=== PATIENT | male | born 1950 | race Caucasian/White ===

== ENCOUNTER 2019-02-05 15:46 | Observation (INO) | payer MEDICARE, OTHER ==
--- NOTE | 2019-02-05 16:10 | EDM.PDOC ---
ED HPI GENERAL MEDICAL PROBLEM - General Chief Complaint: Neck Problem Stated Complaint: L SHOULDER & BACK PAIN Time Seen by Provider: 02/05/19 15:50 Source of Information: Reports: Patient History Limitations: Reports: No Limitations - History of Present Illness INITIAL COMMENTS - FREE TEXT/NARRATIVE: 68 YO WM presents to ER complaining intermittent left sided neck and shoulder pain which began 2 weeks ago. Pt reports pain is sharp in character and lasts for approximately 5 minutes and resolves. Pt denies associated chest pain or shortness of breath. Pt reports he had an episode today which lasted for 5 minutes with associated nausea but denies diaphoresis or dizziness. Pt with history of CAD s/p cardiac cath 2 years ago. Pt reports RCA 100% occluded but he was told he has collateral flow. Pt states he's had a stress test last summer and passed without issues. Pt denies any reproducible aspect to his neck and shoulder pain. Duration: Week(s): (2) Location: Reports: Neck, Chest, Upper Extremity, Left Quality: Reports: Ache Severity: Mild Improves with: Reports: None Worsens with: Reports: None Associated Symptoms: Reports: Nausea/Vomiting, Weakness. Denies: Chest Pain, Cough, Fever/Chills, Loss of Appetite, Shortness of Breath, Syncope - Related Data Allergies Allergy/AdvReac Type Severity Reaction Status Date / Time No Known Drug Allergies Allergy NKDA Verified 02/05/19 16:16 Home Meds: Home Meds Aspirin 81 mg PO BRK 12/06/16 [History] Ezetimibe [Zetia] 10 mg PO DAILY 12/06/16 [History] Folic Acid 400 mcg PO DAILY 12/06/16 [History] Metoprolol Tartrate [Lopressor] 25 mg PO BID 12/06/16 [History] Multivitamin with Minerals [Multiple Vitamin] 1 tab PO DAILY 12/06/16 [History] [place]-3/DHA/Epa/Fish Oil [[place]-3 Fish Oil 1,000 MG Sfgl] 1,000 mg PO BID [History] Simvastatin [Zocor] 80 mg PO BEDTIME 12/06/16 [History] Venlafaxine [Effexor] 75 mg PO DAILY 12/06/16 [History] Fenofibrate 80 mg PO BEDTIME 01/17/17 [History] Finasteride [Proscar] 5 mg PO DAILY 02/05/19 [History] Omeprazole 40 mg PO DAILY 02/05/19 [History] Past Medical History HEENT History: Reports: Allergic Rhinitis, Hard of Hearing, Impaired Vision Other HEENT History: glasses, left ear hearing aide Cardiovascular History: Reports: High Cholesterol, Hypertension Respiratory History: Reports: Asthma, Bronchitis, Recurrent Gastrointestinal History: Reports: Chronic Diarrhea, Colon Polyp, Diverticulosis , Hemorrhoids, Irritable Bowel Syndrome Musculoskeletal History: Reports: Back Pain, Chronic Neurological History: Reports: Other (See Below) Other Neuro History: Trigeminal Neuralgia Psychiatric History: Reports: Depression - Infectious Disease History Infectious Disease History: Reports: C-Difficile, Influenza, Measles, Mumps - Past Surgical History HEENT Surgical History: Reports: Naso-Sinus Surgery, Tonsillectomy Musculoskeletal Surgical History: Reports: Arthroscopic Knee, Shoulder Surgery Social & Family History - Family History Cardiac: Reports: High Cholesterol, Hypertension - Caffeine Use Caffeine Use: Reports: Coffee, Tea Other Caffeine Use: 2 cups/day ED ROS GENERAL - Review of Systems Review Of Systems: See Below Constitutional: Reports: No Symptoms HEENT: Reports: No Symptoms Respiratory: Reports: No Symptoms Cardiovascular: Reports: No Symptoms, Palpitations Endocrine: Reports: No Symptoms GI/Abdominal: Reports: No Symptoms : Reports: No Symptoms Musculoskeletal: Reports: Neck Pain, Shoulder Pain, Arm Pain Skin: Reports: No Symptoms Neurological: Reports: No Symptoms Psychiatric: Reports: No Symptoms Hematologic/Lymphatic: Reports: No Symptoms Immunologic: Reports: No Symptoms ED EXAM, UPPER BACK/NECK PAIN - Physical Exam Exam: See Below Exam Limited By: No Limitations General Appearance: Alert, WD/WN, No Apparent Distress Eye Exam: Bilateral Eye: EOMI, PERRL Ears Exam: Normal External Exam, Normal Canal, Hearing Grossly Normal, Normal TMs Nose Exam: Normal Inspection, Normal Mucousa, No Blood Throat/Mouth Exam: Normal Inspection, Normal Lips, Normal Teeth, Normal Gums, Normal Oropharynx, Normal Voice, No Airway Compromise Head Exam: Atraumatic, Normocephalic Neck Exam: Non-Tender, Full Range of Motion, Normal Alignment, Normal Inspection Cardiovascular/Respiratory: Regular Rate, Rhythm, No M/R/G, Normal Peripheral Pulses, No JVD, Normal Breath Sounds, No Respiratory Distress GI/Abdominal: Normal Bowel Sounds, Soft, Non-Tender, No Organomegaly, No Distention, No Abnormal Bruit, No Mass Back Exam: Normal Inspection, Full Range of Motion, NT Extremities: Normal Inspection, Normal Range of Motion, Non-Tender, No Pedal Edema, Normal Capillary Refill Neurologic: talent analyst II-XII nml As Tested, No Motor/Sensory Deficits, Alert, Normal Mood/Affect, Oriented x 3 Psychiatric: Normal Affect, Normal Mood Skin Exam: Normal Color, Warm/Dry Lymphatic: No Adenopathy EKG INTERPRETATION EKG Date: 02/05/19 Time: 16:04 Rhythm: NSR Rate (Beats/Min): 72 [place]: Normal P-Wave: Present QRS: Normal ST-T: Normal QT: Normal Course - Vital Signs Last Recorded V/S: Last Vital Signs Temp 37.0 C 02/05/19 16:01 Pulse 73 02/05/19 16:50 Resp 16 02/05/19 16:50 BP 119/49 L 02/05/19 16:50 Pulse Ox 95 02/05/19 16:50 - Orders/Labs/Meds Orders: Active Orders 24 hr Category Date Time Status EKG Documentation Completion [RC] ASDIRECTED Care 02/05/19 16:11 Active Peripheral IV Care [RC] . DIRECTED Care 02/05/19 16:11 Active Sodium Chloride 0.9% [Saline Flush] Med 02/05/19 16:11 Active 10 ml FLUSH Q8HR PRN Peripheral IV Insertion Adult [OM.PC] Routine Oth 02/05/19 16:11 Ordered Medication Orders Sodium Chloride (Saline Flush) 10 ml FLUSH Q8HR PRN PRN Reason: keep vein open Labs: Laboratory Tests 02/05/19 02/05/19 Range/Units 16:35 16:35 WBC 5.43 (5.00-10.00) 10^3/uL RBC 4.32 L (4.50-6.00) 10^6/uL Hgb 13.7 (13.0-17.0) g/dL Hct 38.7 L (40.0-52.0) % MCV 89.6 (82.0-92.0) fL MCH 31.7 H (27.0-31.0) pg MCHC 35.4 (32.0-36.0) g/dL RDW 12.0 (11.5-14.5) % Plt Count 219 (150-400) 10^3/uL MPV 10.5 H (7.4-10.4) fL Immature Gran % (Auto) 0.0 (0.0-5.0) % Neut % (Auto) 61.9 (50.0-70.0) % Lymph % (Auto) 23.4 (20.0-40.0) % [place] % (Auto) 11.0 H (2.0-8.0) % Eos % (Auto) 3.1 H (1.0-3.0) % Baso % (Auto) 0.6 (0.0-1.0) % Immature Gran # (Auto) 0.00 (0.00-0.50) 10^3/uL Neut # (Auto) 3.36 (2.50-7.00) 10^3/uL Lymph # (Auto) 1.27 (1.00-4.00) 10^3/uL [place] # (Auto) 0.60 (0.10-0.80) 10^3/uL Eos # (Auto) 0.17 (0.10-0.30) 10^3/uL Baso # (Auto) 0.03 (0.00-0.10) 10^3/uL Sodium 141 (136-145) mmol/L Potassium 3.9 (3.3-5.3) mmol/L Chloride 103 (98-115) mmol/L Carbon Dioxide 27.0 (21.0-32.0) mmol/L Anion Gap 14.9 (5-15) mmol/L BUN 29 H (6-25) mg/dL Creatinine 0.84 (0.51-1.17) mg/dL Est Cr Clr Drug Dosing 81.43 mL/min Estimated GFR (MDRD) > 60 mL/min Glucose 113 H (75 - 99) mg/dL Calcium 9.3 (8.7-10.3) mg/dL Total Bilirubin 0.5 (0.2-1.0) mg/dL AST 22 (15-37) U/L ALT 25 (12-78) U/L Alkaline Phosphatase 37 L (46-116) IU/L Creatine Kinase 86 (26-276) U/L CK-MB (CK-2) 1.00 (0.00-4.30) ng/mL Troponin I < 0.04 (0.00-0.070) ng/mL Total Protein 6.6 (6.4-8.2) g/dL Albumin 3.74 (3.00-4.80) g/dL Meds: Medications Generic Name Dose Route Start Last Admin Trade Name Jayjayq PRN Reason Stop Dose Admin Sodium Chloride 10 ml 02/05/19 16:11 Saline Flush FLUSH Q8HR PRN keep vein open Discontinued Medications Generic Name Dose Route Start Last Admin Trade Name Skylar PRN Reason Stop Dose Admin Aspirin 324 mg 02/05/19 16:11 Aspirin PO 02/05/19 16:12 ONETIME ONE Nitroglycerin 1 gm 02/05/19 16:11 Nitro-Bid 2% TOP 02/05/19 16:12 ONETIME ONE - Radiology Interpretation Free Text/Narrative:: CXR- NAD Departure - Departure Time of Disposition: 17:13 Disposition: Refer to Observation Condition: Fair Clinical Impression: Angina at rest - Discharge Information - My Orders Last 24 Hours: My Active Orders 02/05/19 16:11 EKG Documentation Completion [RC] ASDIRECTED Peripheral IV Care [RC] . DIRECTED Sodium Chloride 0.9% [Saline Flush] 10 ml FLUSH Q8HR PRN Peripheral IV Insertion Adult [OM.PC] Routine - Assessment/Plan Last 24 Hours: My Active Orders 02/05/19 16:11 EKG Documentation Completion [RC] ASDIRECTED Peripheral IV Care [RC] . DIRECTED Sodium Chloride 0.9% [Saline Flush] 10 ml FLUSH Q8HR PRN Peripheral IV Insertion Adult [OM.PC] Routine Assessment:: 1. left shoulder pain/neck pain- possible anginal equivalent Plan: 1. admit for 23 hour obs- medicine- dana Ericon 2. nitro/asa 3. supportive care 4. trop I Q6 x 3 5. telemetry
[2019-02-05] MEDS ORDERED: Nitroglycerin 2% Oint 1 GM UD Packet TOP ONE (16:11)
[2019-02-05] MEDS ORDERED: Sodium Chloride 0.9% 10 ML Syringe FLUSH PRN (16:11)
[2019-02-05] MEDS ORDERED: Aspirin 81 MG Tab.Chew PO ONE (16:11)
--- NOTE | 2019-02-05 16:49 | CR ---
[id number] RAD/RAD Chest PA or AP 1V EXAM: RAD Chest PA or AP 1V INDICATION: PAIN. COMPARISON: January 17, 2017. DISCUSSION: Cardiomediastinal silhouette is normal in size and contour. No infiltrate, effusion, pneumothorax, or edema. IMPRESSION: Negative examination of the chest. Roberto Yadav MD 02/05/19 [id number] Thank you for allowing us to participate in the care of your patient.
[2019-02-05 17:11] LABS: ANION GAP 14.9 mmol/L (5-15); CHLORIDE,CL 103 mmol/L (98-115); SODIUM,NA 141 mmol/L (136-145)
[2019-02-05] MEDS: Nitroglycerin 2% Oint 1 GM UD Packet TOP SCH ×2 (17:45→23:50)
--- NOTE | 2019-02-05 18:56 | PCM.HP ---
H&P History of Present Illness - General Date of Service: 02/05/19 Admit Problem/Dx: Admission Diagnosis/Problem Admission Diagnosis/Problem Angina Source of Information: Patient, Old Records, Provider, Significant Other History Limitations: Reports: No Limitations Headache Pain Score (Numeric/FACES): 0 - Related Data Allergies/Adverse Reactions: Allergies Allergy/AdvReac Type Severity Reaction Status Date / Time No Known Drug Allergies Allergy NKDA Verified 02/05/19 16:16 Home Medications: Home Meds Aspirin 81 mg PO BRK 12/06/16 [History] Folic Acid 400 mcg PO DAILY 12/06/16 [History] Metoprolol Tartrate [Lopressor] 25 mg PO BID 12/06/16 [History] Multivitamin with Minerals [Multiple Vitamin] 1 tab PO DAILY 12/06/16 [History] [place]-3/DHA/Epa/Fish Oil [[place]-3 Fish Oil 1,000 MG Sfgl] 1,000 mg PO BID [History] Simvastatin [Zocor] 80 mg PO BEDTIME 12/06/16 [History] Venlafaxine [Effexor] 75 mg PO DAILY 12/06/16 [History] Finasteride [Proscar] 5 mg PO DAILY 02/05/19 [History] Omeprazole 40 mg PO DAILY 02/05/19 [History] Cyclobenzaprine [Flexeril] 5 mg PO TID PRN #10 tab 02/06/19 [Rx] Naproxen [Naprosyn] 250 mg PO BID #14 tab 02/06/19 [Rx] Past Medical History HEENT History: Reports: Allergic Rhinitis, Hard of Hearing, Impaired Vision Other HEENT History: glasses, left ear hearing aide Cardiovascular History: Reports: High Cholesterol, Hypertension Respiratory History: Reports: Asthma, Bronchitis, Recurrent Gastrointestinal History: Reports: Chronic Diarrhea, Colon Polyp, Diverticulosis , Hemorrhoids, Irritable Bowel Syndrome Genitourinary History: Reports: Other (See Below) Other Genitourinary History: enlarged prostate Musculoskeletal History: Reports: Back Pain, Chronic Neurological History: Reports: Other (See Below) Other Neuro History: Trigeminal Neuralgia Psychiatric History: Reports: Depression - Infectious Disease History Infectious Disease History: Reports: C-Difficile, Influenza, Measles, Mumps - Past Surgical History HEENT Surgical History: Reports: Naso-Sinus Surgery, Tonsillectomy Musculoskeletal Surgical History: Reports: Arthroscopic Knee, Shoulder Surgery Social & Family History - Family History Cardiac: Reports: High Cholesterol, Hypertension - Tobacco Use Smoking Status *Q: Never Smoker Second Hand Smoke Exposure: No - Caffeine Use Caffeine Use: Reports: Coffee, Tea Other Caffeine Use: 2 cups/day - Recreational Drug Use Recreational Drug Use: No H&P Review of Systems - Review of Systems: Review Of Systems: See Below General: Reports: Fatigue. Denies: Fever, Chills, Weakness, Decreased Appetite HEENT: Reports: Glasses, Headaches (chronic tension-type/neck headaches). Denies: Ear Pain, Sinus Congestion, Sore Throat Pulmonary: Denies: Shortness of Breath, Cough Cardiovascular: Denies: Chest Pain, Palpitations, Dyspnea on Exertion, Edema, Lightheadedness Gastrointestinal: Reports: Other (No reflux). Denies: Abdominal Pain, Constipation, Diarrhea, Decreased Appetite, Nausea, Vomiting Genitourinary: Reports: No Symptoms Musculoskeletal: Reports: Neck Pain (chronic due to difficult ), Shoulder Pain (left shoulder joint with radiation up the neck). Denies: Arm Pain, Back Pain Psychiatric: Reports: No Symptoms Neurological: Reports: Headache. Denies: Confusion, Dizziness, Numbness, Tingling Exam - Exam Exam: See Below - Vital Signs Vital Signs: Last Vital Signs Temp 98.6 F 02/05/19 16:01 Pulse 73 02/05/19 16:50 Resp 16 02/05/19 16:50 BP 119/49 L 02/05/19 16:50 Pulse Ox 95 02/05/19 16:50 Weight: 152 lb - Exam Quality Assessment: No: Supplemental Oxygen General: Alert, Oriented (x3), Cooperative, Other (No distress) HEENT: Conjunctiva Clear, Hearing Intact, Mucosa Moist & [place], Posterior Pharynx Clear, TMs Clear, Glasses Neck: Supple, Trachea Midline, Full Range of Motion, Other (No neck pain elicited). No: Lymphadenopathy Lungs: Clear to Auscultation, Normal Respiratory Effort Cardiovascular: Regular Rate, Regular Rhythm, Normal S1, Normal S2 GI/Abdominal Exam: Normal Bowel Sounds, Soft, Non-Tender, No Distention Back Exam: Muscle Spasm (upper left trapezius muscle spasm with tenderness elicited) Extremities: No Pedal Edema, Other (Active ROM intact to left shoulder without pain) Skin: Warm, Dry Neurological: Strength Equal Bilateral (BUE), Normal Speech Neuro Extensive - Mental Status: Alert, Oriented x3 Psychiatric: Alert, Normal Affect, Normal Mood - Patient Data Lab Results Last 24 hrs: Laboratory Results - last 24 hr 02/05/19 02/05/19 Range/Units 16:35 16:35 WBC 5.43 (5.00-10.00) 10^3/uL RBC 4.32 L (4.50-6.00) 10^6/uL Hgb 13.7 (13.0-17.0) g/dL Hct 38.7 L (40.0-52.0) % MCV 89.6 (82.0-92.0) fL MCH 31.7 H (27.0-31.0) pg MCHC 35.4 (32.0-36.0) g/dL RDW 12.0 (11.5-14.5) % Plt Count 219 (150-400) 10^3/uL MPV 10.5 H (7.4-10.4) fL Immature Gran % (Auto) 0.0 (0.0-5.0) % Neut % (Auto) 61.9 (50.0-70.0) % Lymph % (Auto) 23.4 (20.0-40.0) % [place] % (Auto) 11.0 H (2.0-8.0) % Eos % (Auto) 3.1 H (1.0-3.0) % Baso % (Auto) 0.6 (0.0-1.0) % Immature Gran # (Auto) 0.00 (0.00-0.50) 10^3/uL Neut # (Auto) 3.36 (2.50-7.00) 10^3/uL Lymph # (Auto) 1.27 (1.00-4.00) 10^3/uL [place] # (Auto) 0.60 (0.10-0.80) 10^3/uL Eos # (Auto) 0.17 (0.10-0.30) 10^3/uL Baso # (Auto) 0.03 (0.00-0.10) 10^3/uL Sodium 141 (136-145) mmol/L Potassium 3.9 (3.3-5.3) mmol/L Chloride 103 (98-115) mmol/L Carbon Dioxide 27.0 (21.0-32.0) mmol/L Anion Gap 14.9 (5-15) mmol/L BUN 29 H (6-25) mg/dL Creatinine 0.84 (0.51-1.17) mg/dL Est Cr Clr Drug Dosing 81.43 mL/min Estimated GFR (MDRD) > 60 mL/min Glucose 113 H (75 - 99) mg/dL Calcium 9.3 (8.7-10.3) mg/dL Total Bilirubin 0.5 (0.2-1.0) mg/dL AST 22 (15-37) U/L ALT 25 (12-78) U/L Alkaline Phosphatase 37 L (46-116) IU/L Creatine Kinase 86 (26-276) U/L CK-MB (CK-2) 1.00 (0.00-4.30) ng/mL Troponin I < 0.04 (0.00-0.070) ng/mL Total Protein 6.6 (6.4-8.2) g/dL Albumin 3.74 (3.00-4.80) g/dL Result Diagrams: 02/06/19 07:55 02/06/19 07:55 EKG INTERPRETATION EKG Date: 02/05/19 Time: 16:04 Rhythm: NSR Rate (Beats/Min): 72 [place]: Normal P-Wave: Present QRS: Normal ST-T: Normal Comparison: Change From Previous EKG (Sinus bradycardia at 58 bpm (February 2017)) Problem List Initiated/Reviewed/Updated: Yes Orders Last 24hrs: Active Orders 24 hr Category Date Time Status Patient Status Manage Transfer [TRANSFER] Routine ADT 02/05/19 17:32 Ordered Patient Status [ADT] Routine ADT 02/05/19 17:33 Ordered Cardiac Monitoring [RC] CONTINUOUS Care 02/05/19 17:34 Active EKG Documentation Completion [RC] ASDIRECTED Care 02/05/19 16:11 Active Oxygen Therapy [RC] PRN Care 02/05/19 17:33 Active Peripheral IV Care [RC] . DIRECTED Care 02/05/19 16:11 Active Up ad Mitzy [RC] ASDIRECTED Care 02/05/19 17:33 Active VTE/DVT Education [RC] PER UNIT ROUTINE Care 02/05/19 17:33 Active Vital Signs [RC] Q4H Care 02/05/19 17:33 Active 2 Gram Sodium Diet [DIET] Diet 02/05/19 Dinner Active Cervical Spine 2V or 3V [CR] Routine Exams 02/05/19 18:42 Ordered BASIC METABOLIC PANEL,BMP [CHEM] AM Lab 02/06/19 05:11 Ordered CBC WITH AUTO DIFF [HEME] AM Lab 02/06/19 05:11 Ordered TROPONIN I [CHEM] AM Lab 02/06/19 05:11 Ordered TROPONIN I [CHEM] Timed Lab 02/05/19 22:00 Ordered Aspirin Med 02/06/19 08:00 Ordered 81 mg PO BRK Aspirin [Ecotrin] Med 02/06/19 09:00 Active 325 mg PO DAILY Ezetimibe [Zetia] Med 02/06/19 09:00 Ordered 10 mg PO DAILY Fenofibrate Med 02/05/19 21:00 Ordered 80 mg PO BEDTIME Finasteride [Proscar] Med 02/06/19 09:00 Ordered 5 mg PO DAILY Folic Acid [Folic Acid] Med 02/06/19 09:00 Ordered 400 mcg PO DAILY Metoprolol Tartrate [Lopressor] Med 02/05/19 21:00 Ordered 25 mg PO BID Multivitamin with Minerals [Multiple Vitamin] Med 02/06/19 09:00 Ordered 1 tab PO DAILY Nitroglycerin [Nitro-Bid 2%] Med 02/05/19 17:45 Active 1 gm TOP Q6H [place]-3/DHA/Epa/Fish Oil [[place]-3 Fish Oil 1,000 MG Med 02/05/19 21:00 Ordered Sfgl] 1,000 mg PO BID Omeprazole Med 02/06/19 09:00 Ordered 40 mg PO DAILY Simvastatin [Zocor] Med 02/05/19 21:00 Ordered 80 mg PO BEDTIME Sodium Chloride 0.9% [Saline Flush] Med 02/05/19 16:11 Active 10 ml FLUSH Q8HR PRN Venlafaxine [Effexor] Med 02/06/19 09:00 Ordered 75 mg PO DAILY Peripheral IV Insertion Adult [OM.PC] Routine Oth 02/05/19 16:11 Ordered Resuscitation Status Routine Resus Stat 02/05/19 17:33 Ordered Medication Orders Aspirin (Ecotrin) 325 mg PO DAILY [facility] Aspirin (Aspirin) 81 mg PO BRK [facility] Ezetimibe (Zetia) 10 mg PO DAILY [facility] Fenofibrate (Fenofibrate) 80 mg PO BEDTIME [facility] Finasteride (Proscar) 5 mg PO DAILY [facility] Metoprolol Tartrate (Lopressor) 25 mg PO BID [facility] Nitroglycerin (Nitro-Bid 2%) 1 gm TOP Q6H [facility] Last Admin: 02/05/19 17:45 Dose: Not Given Non-Formulary Medication (Folic Acid [Folic Acid]) 400 mcg PO DAILY [facility] Non-Formulary Medication (Multivitamin With Minerals [Multiple Vitamin]) 1 tab PO DAILY [facility] Non-Formulary Medication ([place]-3/Dha/Epa/Fish Oil [[place]-3 Fish Oil 1,000 Mg Sfgl]) 1,000 mg PO BID [facility] Non-Formulary Medication (Simvastatin [Zocor]) 80 mg PO BEDTIME [facility] Omeprazole (Omeprazole) 40 mg PO DAILY [facility] Sodium Chloride (Saline Flush) 10 ml FLUSH Q8HR PRN PRN Reason: keep vein open Venlafaxine HCl (Effexor) 75 mg PO DAILY [facility] Assessment/Plan Comment:: HPI: This is a 68 year old male who presented to the ED with concerns of left sided neck and shoulder pain that began 2 weeks ago. Pain is reported to be at the left shoulder joint with radiation up the neck and down the arm to the elbow ; sharp and intermittent. He experienced an episode of 5 minutes of pain with nausea today, which is what brought him in to the ED. Denies chest pain, shortness of breath, or dizziness. Denies any injury or precipitating event. Patient became nervous as he does have a history of CAD s/p cardiac cath 2 years ago. He was told the RCA was 100% occluded, but he has collateral flow. He notes he had a stress test last summer than was negative. Pertinent ED workup: EKG NSR, no ST segment changes CXR no acute processes Troponin <0.04. CBC, CMP unremarkable Received aspirin 324 mg and nitropaste Further work-up upon admission: -Medication reconciliation -Cervical spine x-ray Primary Assessment/Plan: Acute left shoulder and acute on chronic cervical spine pain. Upon further history and review of chart, there are no anginal concerns. Patient quite concerned however about his heart so will leave on telemetry and obtain a total of 3 troponins. Cervical spine x-ray pending. He is not currently having any pain, so will not order pain reliever at this time. Secondary Assessment/Plan: CAD. Continue lopressor 25 mg BID and baby aspirin daily. HTN. See above. Hypercholesterolemia. LDL 40 (2017). Continue simvastatin, however discontinue zetia and fenofibrate as this combination could increase the risk of myalgias/myopathy and based on labs it is not warranted. Depression. Continue effexor XR. GERD. Continue omeprazole. BPH. Continue finasteride. DVT prophylaxis. Score of 2. No clinical risk for DVT/PE. No treatment. Overall plan: Monitor with telemetry and troponins. Obtain x-ray of cervical spine. If hemodynamically stable, will be able to be discharged tomorrow.
--- NOTE | 2019-02-05 19:55 | CR ---
[id number] RAD/RAD Cervical Spine 2-3V Exam: RAD Cervical Spine 2-3V Indication:NECK PAIN, NO INJURY Comparison: No prior imaging for comparison. Discussion: Mild/moderate changes of spondylosis. Straightening of the normal cervical lordosis. Radiographically evident fracture or compression deformity. Prevertebral soft tissues are normal in thickness. Hyperdense material projects over the mastoid region. Correlate for history of prior surgery. Impression: As above. Roberto Yadav MD 02/05/19 1954 Thank you for allowing us to participate in the care of your patient.
[2019-02-05] MEDS: Metoprolol Tartrate 50 MG Tab PO SCH (20:51)
[2019-02-05] MEDS: Fish Oil/Omega-3 Fatty Acids 1 Gm Cap PO SCH (20:51)
[2019-02-05] MEDS ORDERED: Simvastatin 20 MG Tab PO SCH (21:00)
[2019-02-05] MEDS ORDERED: Fenofibrate 160 MG Tab PO SCH (21:00)
[2019-02-06] MEDS: Nitroglycerin 2% Oint 1 GM UD Packet TOP SCH (05:06)
[2019-02-06] MEDS ORDERED: Omeprazole 20 MG Cap.CR PO SCH (07:00)
[2019-02-06] MEDS ORDERED: Aspirin 81 MG Tab.Chew PO SCH (08:00)
[2019-02-06] MEDS: Metoprolol Tartrate 50 MG Tab PO SCH (08:35)
[2019-02-06] MEDS: Fish Oil/Omega-3 Fatty Acids 1 Gm Cap PO SCH (08:39)
[2019-02-06 08:50] LABS: CHLORIDE,CL 107 mmol/L (98-115)
[2019-02-06 08:51] LABS: SODIUM,NA 143 mmol/L (136-145)
[2019-02-06] MEDS ORDERED: Multivitamins with Minerals/Iron/Folic Acid/Lycopene Tab PO SCH (09:00)
[2019-02-06] MEDS ORDERED: Folic Acid 1 MG Tab PO SCH (09:00)
[2019-02-06] MEDS ORDERED: Ezetimibe 10 MG Tab PO SCH (09:00)
[2019-02-06] MEDS ORDERED: Aspirin 325 MG Tab.EC PO SCH (09:00)
[2019-02-06] MEDS ORDERED: Venlafaxine 75 MG Tab PO SCH (09:00)
[2019-02-06] MEDS ORDERED: Finasteride 5 MG Tab PO SCH (09:00)
--- NOTE | 2019-02-06 11:52 | CT ---
[id number] CT/CT Cervical Spine WO IV EXAM: CT Cervical Spine WO IV INDICATION: COMPRESSION FRACTURE VERSUS DEFORMITY. COMPARISON: February 05, 2019 left DISCUSSION: Negative for acute fracture or compression deformity. Mild/moderate changes of spondylosis diffusely throughout the cervical spine, including slight loss of intervertebral disc height at C5-6. Postsurgical change from craniotomy with prosthesis placement in the posterior fossa on the left just posterior to the mastoid air cells. This correlates with findings on radiograph. IMPRESSION: No acute findings in the cervical spine. Roberto Yadav MD 02/06/19 2001 Thank you for allowing us to participate in the care of your patient.
[2019-02-06 12:33] VITALS: BP 106/61
--- NOTE | 2019-02-06 13:19 | PCM.DCSUM1 ---
Discharge Summary - Hospital Course Brief History: This is a 68 year old male who presented to the ED with concerns of left sided neck and shoulder pain that began 2 weeks ago. Pain was reported to be at the left shoulder joint with radiation up the neck and down the arm to the elbow; sharp and intermittent. He experienced an episode of 5 minutes of pain with nausea on day of admission, which is what brought him in to the ED. Denied chest pain, shortness of breath, or dizziness. Denied any injury or precipitating event. Patient became nervous as he does have a history of CAD s/ p cardiac cath 2 years ago. He was told the RCA was 100% occluded, but he has collateral flow. He noted he had a stress test last summer that was negative. He was admitted for further work-up and monitoring. - Discharge Data Discharge Date: 02/06/19 Discharge Disposition: Home, Self-Care 01 Condition: Good - Patient Summary/Data Complications: None Consults: None Labs Pending at D/C: None - Patient Instructions Diet: Heart Healthy Diet Activity: As Tolerated Driving: May Drive Today Showering/Bathing: May Shower Other/Special Instructions: Trial of Naproxen 250 mg twice a day for the next week for your shoulder pain. May also use tylenol 1000 mg up to 4 times a day as needed for pain. Repeat cholesterol panel in 3 months. Notify provider if shoulder pain significantly worsens, if you have chest pain, palpitations, or shortness of breath. - Discharge Plan *PRESCRIPTION DRUG MONITORING PROGRAM REVIEWED*: Not Applicable *COPY OF PRESCRIPTION DRUG MONITORING REPORT IN PATIENT TALIA: Not Applicable Prescriptions/Med Rec: Cyclobenzaprine [Flexeril] 5 mg PO TID PRN #10 tab PRN Reason: muscle spasms Naproxen [Naprosyn] 250 mg PO BID #14 tab Home Medications: Home Meds Aspirin 81 mg PO BRK 12/06/16 [History] Folic Acid 400 mcg PO DAILY 12/06/16 [History] Metoprolol Tartrate [Lopressor] 25 mg PO BID 12/06/16 [History] Multivitamin with Minerals [Multiple Vitamin] 1 tab PO DAILY 12/06/16 [History] [place]-3/DHA/Epa/Fish Oil [[place]-3 Fish Oil 1,000 MG Sfgl] 1,000 mg PO BID [History] Simvastatin [Zocor] 80 mg PO BEDTIME 12/06/16 [History] Venlafaxine [Effexor] 75 mg PO DAILY 12/06/16 [History] Finasteride [Proscar] 5 mg PO DAILY 02/05/19 [History] Omeprazole 40 mg PO DAILY 02/05/19 [History] Cyclobenzaprine [Flexeril] 5 mg PO TID PRN #10 tab 02/06/19 [Rx] Naproxen [Naprosyn] 250 mg PO BID #14 tab 02/06/19 [Rx] Referrals: Jesus Pringle MD [Primary Care Provider] - (Follow-up with a provider this coming week. ) - Discharge Summary/Plan Comment DC Time >30 min.: Yes Discharge Summary/Plan Comment: Date of admission: 02/05/19 Date of discharge 02/06/19 Admitting diagnoses: Primary: Acute left shoulder pain, acute on chronic cervical spine pain Secondary: CAD, HTN, Hypercholesterolemia, Depression, GERD, BPH Final diagnosis: Primary: Acute left shoulder pain, acute on chronic cervical spine pain, spondylolysis (mild-moderate) of cervical spine. Secondary: CAD, HTN, Hypercholesterolemia, Depression, GERD, BPH Hospital Course: The patient's hospital course was uneventful. BP and pulse overnight did drop some, however he never became hemodynamically unstable and this is attributed to the nitropaste that had been applied in the ED. He was monitored with telemetry without any abnormalities and he had 3 negative troponins. Chest x- ray was negative. Cervical spine x-ray had questioned a fracture versus deformity, so patient underwent a CT of the cervical spine that revealed no acute findings, mild/moderate changes of spondylosis diffusely throughout with slight loss of intervertebral disc height at C5-6. Review of Epic Chart, noted patient had LDL of 40 in 2017. Question relation of myopathy to the use of fenofibrate, zetia, and simvastatin together. New medications on discharge: -Naproxen 250 mg po BID x 1 week -Flexeril 5 mg po TID PRN spasms -Tylenol 1000 mg po q6h PRN Changes to home medications on discharge: -Discontinue zetia and fenofibrate Regular home medications on discharge: -Lopressor 25 mg po BID -Finasteride 5 mg po daily -Fish Oil 1000 mg po BID -Multivitamin 1 tab po daily -Simvastatin 80 mg po daily -Folic acid 400 mcg po daily -Aspirin 81 mg po daily -Effexor XR 75 mg po daily -Omeprazole 40 mg po daily Condition, Treatment, and Final Disposition: The patient was discharged home in stable condition with his . He will follow-up with his PCP within the week. Considerations at follow-up would include ordering repeat lipid panel in 3 months, consideration of a high intensity statin instead of the simvastatin 80 mg daily, and possible joint injection. - General Info Date of Service: 02/06/19 - Review of Systems General: Reports: Fatigue. Denies: Fever, Chills HEENT: Reports: Glasses. Denies: Headaches Pulmonary: Denies: Shortness of Breath Cardiovascular: Denies: Chest Pain, Edema, Lightheadedness Gastrointestinal: Denies: Abdominal Pain, Decreased Appetite, Nausea Genitourinary: Reports: No Symptoms Musculoskeletal: Reports: Neck Pain (Left-sided neck, shoulder, and arm pain), Shoulder Pain, Arm Pain Skin: Reports: No Symptoms Neurological: Denies: Dizziness, Headache Psychiatric: Reports: No Symptoms - Patient Data Vitals - Most Recent: Last Vital Signs Temp 98.0 F 02/06/19 11:00 Pulse 62 02/06/19 11:00 Resp 16 02/06/19 11:00 BP 106/61 02/06/19 11:00 Pulse Ox 98 02/06/19 11:00 Weight - Most Recent: 151 lb 8 oz I&O - Last 24 hours: Intake & Output 02/05/19 02/06/19 02/06/19 22:59 06:59 14:59 Intake Total 350 0 Balance 350 0 Lab Results - Last 24 hrs: Laboratory Results - last 24 hr 02/05/19 02/05/19 02/05/19 Range/Units 16:35 16:35 23:38 WBC 5.43 (5.00-10.00) 10^3/uL RBC 4.32 L (4.50-6.00) 10^6/uL Hgb 13.7 (13.0-17.0) g/dL Hct 38.7 L (40.0-52.0) % MCV 89.6 (82.0-92.0) fL MCH 31.7 H (27.0-31.0) pg MCHC 35.4 (32.0-36.0) g/dL RDW 12.0 (11.5-14.5) % Plt Count 219 (150-400) 10^3/uL MPV 10.5 H (7.4-10.4) fL Immature Gran % (Auto) 0.0 (0.0-5.0) % Neut % (Auto) 61.9 (50.0-70.0) % Lymph % (Auto) 23.4 (20.0-40.0) % [place] % (Auto) 11.0 H (2.0-8.0) % Eos % (Auto) 3.1 H (1.0-3.0) % Baso % (Auto) 0.6 (0.0-1.0) % Immature Gran # (Auto) 0.00 (0.00-0.50) 10^3/uL Neut # (Auto) 3.36 (2.50-7.00) 10^3/uL Lymph # (Auto) 1.27 (1.00-4.00) 10^3/uL [place] # (Auto) 0.60 (0.10-0.80) 10^3/uL Eos # (Auto) 0.17 (0.10-0.30) 10^3/uL Baso # (Auto) 0.03 (0.00-0.10) 10^3/uL Sodium 141 (136-145) mmol/L Potassium 3.9 (3.3-5.3) mmol/L Chloride 103 (98-115) mmol/L Carbon Dioxide 27.0 (21.0-32.0) mmol/L Anion Gap 14.9 (5-15) mmol/L BUN 29 H (6-25) mg/dL Creatinine 0.84 (0.51-1.17) mg/dL Est Cr Clr Drug Dosing 81.43 mL/min Estimated GFR (MDRD) > 60 mL/min Glucose 113 H (75 - 99) mg/dL Calcium 9.3 (8.7-10.3) mg/dL Total Bilirubin 0.5 (0.2-1.0) mg/dL AST 22 (15-37) U/L ALT 25 (12-78) U/L Alkaline Phosphatase 37 L (46-116) IU/L Creatine Kinase 86 (26-276) U/L CK-MB (CK-2) 1.00 (0.00-4.30) ng/mL Troponin I < 0.04 < 0.04 (0.00-0.070) ng/mL Total Protein 6.6 (6.4-8.2) g/dL Albumin 3.74 (3.00-4.80) g/dL 02/06/19 02/06/19 Range/Units 07:55 07:55 WBC 6.29 (5.00-10.00) 10^3/uL RBC 4.19 L (4.50-6.00) 10^6/uL Hgb 13.3 (13.0-17.0) g/dL Hct 37.8 L (40.0-52.0) % MCV 90.2 (82.0-92.0) fL MCH 31.7 H (27.0-31.0) pg MCHC 35.2 (32.0-36.0) g/dL RDW 12.3 (11.5-14.5) % Plt Count 217 (150-400) 10^3/uL MPV 10.8 H (7.4-10.4) fL Immature Gran % (Auto) 0.0 (0.0-5.0) % Neut % (Auto) 60.9 (50.0-70.0) % Lymph % (Auto) 22.1 (20.0-40.0) % [place] % (Auto) 11.0 H (2.0-8.0) % Eos % (Auto) 5.4 H (1.0-3.0) % Baso % (Auto) 0.6 (0.0-1.0) % Immature Gran # (Auto) 0.00 (0.00-0.50) 10^3/uL Neut # (Auto) 3.83 (2.50-7.00) 10^3/uL Lymph # (Auto) 1.39 (1.00-4.00) 10^3/uL [place] # (Auto) 0.69 (0.10-0.80) 10^3/uL Eos # (Auto) 0.34 H (0.10-0.30) 10^3/uL Baso # (Auto) 0.04 (0.00-0.10) 10^3/uL Sodium 143 (136-145) mmol/L Potassium 3.9 (3.3-5.3) mmol/L Chloride 107 (98-115) mmol/L Carbon Dioxide 27.9 (21.0-32.0) mmol/L Anion Gap 12.0 (5-15) mmol/L BUN 23 (6-25) mg/dL Creatinine 0.91 (0.51-1.17) mg/dL Est Cr Clr Drug Dosing 75.16 mL/min Estimated GFR (MDRD) > 60 mL/min Glucose 93 (75 - 99) mg/dL Calcium 9.1 (8.7-10.3) mg/dL Total Bilirubin (0.2-1.0) mg/dL AST (15-37) U/L ALT (12-78) U/L Alkaline Phosphatase (46-116) IU/L Creatine Kinase (26-276) U/L CK-MB (CK-2) (0.00-4.30) ng/mL Troponin I < 0.04 (0.00-0.070) ng/mL Total Protein (6.4-8.2) g/dL Albumin (3.00-4.80) g/dL Med Orders - Current: Current Medications Aspirin (Aspirin) 81 mg PO BRK [facility] Last Admin: 02/06/19 08:35 Dose: 81 mg Ezetimibe (Zetia) 10 mg PO DAILY [facility] Last Admin: 02/06/19 08:40 Dose: 10 mg Fenofibrate (Fenofibrate) 80 mg PO BEDTIME [facility] Last Admin: 02/05/19 20:52 Dose: Not Given Finasteride (Proscar) 5 mg PO DAILY [facility] Last Admin: 02/06/19 08:40 Dose: 5 mg Fish Oil (Fish Oil) 1 gm PO BID [facility] Last Admin: 02/06/19 08:39 Dose: 1 gm Folic Acid (Folic Acid) 0.5 mg PO DAILY [facility] Last Admin: 02/06/19 08:40 Dose: 0.5 mg Metoprolol Tartrate (Lopressor) 25 mg PO BID [facility] Last Admin: 02/06/19 08:35 Dose: 25 mg Multivitamins/Minerals (Centrum) 1 tab PO DAILY [facility] Last Admin: 02/06/19 08:41 Dose: 1 tab Omeprazole (Omeprazole) 40 mg PO DAILY@0700 [facility] Last Admin: 02/06/19 06:29 Dose: 40 mg Simvastatin (Zocor) 80 mg PO BEDTIME [facility] Last Admin: 02/05/19 20:52 Dose: 80 mg Venlafaxine HCl (Effexor) 75 mg PO DAILY [facility] Last Admin: 02/06/19 08:35 Dose: 75 mg Discontinued Medications Aspirin (Aspirin) 324 mg PO ONETIME ONE Stop: 02/05/19 16:12 Last Admin: 02/05/19 17:40 Dose: 324 mg Aspirin (Ecotrin) 325 mg PO DAILY [facility] Nitroglycerin (Nitro-Bid 2%) 1 gm TOP ONETIME ONE Stop: 02/05/19 16:12 Last Admin: 02/05/19 17:42 Dose: 1 gm Nitroglycerin (Nitro-Bid 2%) 1 gm TOP Q6H [facility] Last Admin: 02/06/19 05:06 Dose: Not Given Sodium Chloride (Saline Flush) 10 ml FLUSH Q8HR PRN PRN Reason: keep vein open - Exam Quality Assessment: Denies: Supplemental Oxygen, DVT Prophylaxis General: Reports: Alert, Oriented, Cooperative, No Acute Distress Neck: Reports: Other (No cervical spine tenderness elicited.) Lungs: Reports: Clear to Auscultation, Normal Respiratory Effort Cardiovascular: Reports: Regular Rate, Regular Rhythm, No Murmurs GI/Abdominal Exam: Normal Bowel Sounds, Soft, Non-Tender Extremities: No Pedal Edema, Other (Tenderness elicited over left trapezius and AC joint; ROM intact to left shoulder/arm. ) Skin: Reports: Warm, Dry, Intact Neurological: Reports: Normal Speech Psy/Mental Status: Reports: Alert, Normal Affect, Normal Mood
== END 2019-02-06 14:04 | disposition home or self-care (01) ==
LOC: KA.ED 15:46 → KA.MS 16:49
PROVIDERS: ADMIT Nurse Practitioner Family; ATTEND Family Medicine
DX: M54.2 Cervicalgia (principal); M25.512 Pain in left shoulder; G89.29 Other chronic pain; I10 Essential (primary) hypertension; J45.909 Unspecified asthma, uncomplicated; E78.00 Pure hypercholesterolemia, unspecified; I25.10 Atherosclerotic heart disease of native coronary artery without angina pectoris; Z79.82 Long term (current) use of aspirin; Z79.899 Other long term (current) drug therapy
CPT/HCPCS: 36415; 71045; 72040; 72125; 80048; 80053; 82550; 82553; 84484; 85025; 93005; 99284; A9270; G0378

== ENCOUNTER 2019-04-23 18:38 | Emergency (ER) | payer MEDICARE, OTHER ==
[2019-04-23] MEDS ORDERED: Sodium Chloride 0.9% 1,000 ML IV ONE (18:42)
[2019-04-23] MEDS ORDERED: Sodium Chloride 0.9% 10 ML Syringe FLUSH PRN (18:42)
[2019-04-23] MEDS ORDERED: HYDROmorphone 1 MG/ML Syringe IVPUSH ONE ×4 (18:42→21:06)
[2019-04-23] MEDS ORDERED: Ondansetron 4 MG/2 ML SDV IVPUSH ONE (18:42)
--- NOTE | 2019-04-23 18:51 | EDM.PDOC ---
ED HPI GENERAL MEDICAL PROBLEM - General Chief Complaint: General Stated Complaint: HEMATOMA Time Seen by Provider: 04/23/19 18:41 Source of Information: Reports: Patient History Limitations: Reports: No Limitations - History of Present Illness INITIAL COMMENTS - FREE TEXT/NARRATIVE: Patient is a 69-year-old gentleman who presents to the emergency department this evening with a complaint of abdominal pain. Patient underwent hernia repair on April 15 at [facility]. According to the patient and his the procedure was uneventful. However, he did notice a small hematoma developing at the surgical site. Follow-up visit yesterday at the surgeon's office and the surgeon tried to needle aspirate. However, the blood was clotted and he told the patient that it would resolve on its own. Patient states that he had discomfort most of the day and approximately 6 p.m. this evening he felt a pop and excruciating pain to the area. Patient noticed that the area was expanding , so he presented to the emergency department. Patient denies any trauma to area, lifting, chest pain, fever, shortness of breath, nausea, vomiting, testicular pain, or taking blood thinners. Onset: Today Onset Date: 04/23/19 Onset Time: 18:00 Duration: Minutes: Location: Reports: Abdomen Quality: Reports: Pressure Severity: Moderate Improves with: Reports: None Worsens with: Reports: Movement Context: Denies: Trauma Associated Symptoms: Reports: No Other Symptoms. Denies: Chest Pain, Fever/ Chills, Nausea/Vomiting, Shortness of Breath left groin Pain Score (Numeric/FACES): 10 - Related Data Allergies Allergy/AdvReac Type Severity Reaction Status Date / Time No Known Drug Allergies Allergy NKDA Verified 04/23/19 19:20 Home Meds: Home Meds Aspirin 81 mg PO BRK 12/06/16 [History] Folic Acid 400 mcg PO DAILY 12/06/16 [History] Metoprolol Tartrate [Lopressor] 25 mg PO BID 12/06/16 [History] Multivitamin with Minerals [Multiple Vitamin] 1 tab PO DAILY 12/06/16 [History] [place]-3/DHA/Epa/Fish Oil [[place]-3 Fish Oil 1,000 MG Sfgl] 1,000 mg PO BID [History] Simvastatin [Zocor] 80 mg PO BEDTIME 12/06/16 [History] Venlafaxine [Effexor] 75 mg PO DAILY 12/06/16 [History] Finasteride [Proscar] 5 mg PO DAILY 02/05/19 [History] Omeprazole 40 mg PO DAILY 02/05/19 [History] Naproxen [Naprosyn] 250 mg PO BID #14 tab 02/06/19 [Rx] Past Medical History HEENT History: Reports: Allergic Rhinitis, Hard of Hearing, Impaired Vision Other HEENT History: glasses, left ear hearing aide Cardiovascular History: Reports: High Cholesterol, Hypertension Respiratory History: Reports: Asthma, Bronchitis, Recurrent Gastrointestinal History: Reports: Chronic Diarrhea, Colon Polyp, Diverticulosis , Hemorrhoids, Irritable Bowel Syndrome Genitourinary History: Reports: Other (See Below) Other Genitourinary History: enlarged prostate Musculoskeletal History: Reports: Back Pain, Chronic Neurological History: Reports: Other (See Below) Other Neuro History: Trigeminal Neuralgia Psychiatric History: Reports: Depression - Infectious Disease History Infectious Disease History: Reports: C-Difficile, Influenza, Measles, Mumps - Past Surgical History HEENT Surgical History: Reports: Naso-Sinus Surgery, Tonsillectomy Musculoskeletal Surgical History: Reports: Arthroscopic Knee, Shoulder Surgery Social & Family History - Family History Family Medical History: Noncontributory Cardiac: Reports: High Cholesterol, Hypertension - Caffeine Use Caffeine Use: Reports: Coffee, Tea Other Caffeine Use: 2 cups/day ED ROS GENERAL - Review of Systems Review Of Systems: ROS reveals no pertinent complaints other than HPI. Constitutional: Reports: No Symptoms HEENT: Reports: No Symptoms Respiratory: Reports: No Symptoms Cardiovascular: Reports: No Symptoms Endocrine: Reports: No Symptoms GI/Abdominal: Reports: Abdominal Pain (Hematoma at suture line left lower quadrant) : Reports: No Symptoms Musculoskeletal: Reports: No Symptoms Skin: Reports: Bruising Neurological: Reports: No Symptoms Psychiatric: Reports: No Symptoms Hematologic/Lymphatic: Reports: No Symptoms ED EXAM, GENERAL - Physical Exam Exam: See Below Exam Limited By: No Limitations General Appearance: Alert, WD/WN, Mild Distress Throat/Mouth: Normal Inspection, Normal Oropharynx, No Airway Compromise Head: Atraumatic, Normocephalic Neck: Normal Inspection, Supple, Non-Tender Respiratory/Chest: No Respiratory Distress, Lungs Clear, Normal Breath Sounds, No Accessory Muscle Use, Chest Non-Tender Cardiovascular: Regular Rate, Rhythm, No Murmur GI/Abdominal: Normal Bowel Sounds, Mass (Firm hematoma at left lower quadrant expanding proximally and medially) (Male) Exam: Normal Inspection. No: Scrotum Tenderness (L), Scrotum Tenderness (R), Testicular Mass Back Exam: Normal Inspection. No: CVA Tenderness (L), CVA Tenderness (R) Extremities: Normal Inspection, No Pedal Edema Neurological: Alert, Oriented, Normal Cognition Psychiatric: Normal Affect, Normal Mood Skin Exam: Warm, Dry, Intact, Normal Color, No Rash, Ecchymosis (Left lower abdomen, status post surgery) Course - Vital Signs Last Recorded V/S: Last Vital Signs Temp 97.8 F 04/23/19 19:14 Pulse 73 04/23/19 19:14 Resp 24 H 04/23/19 19:14 BP 152/120 H 04/23/19 19:14 Pulse Ox 78 L 04/23/19 19:14 - Orders/Labs/Meds Orders: Active Orders 24 hr Category Date Time Status Peripheral IV Care [RC] . DIRECTED Care 04/23/19 18:43 Active Abdomen w Cont [CT] Stat Exams 04/23/19 18:42 Ordered Sodium Chloride 0.9% [Saline Flush] Med 04/23/19 18:42 Ordered 10 ml FLUSH Q8HR PRN Peripheral IV Insertion Adult [OM.PC] Routine Oth 04/23/19 18:42 Ordered Medication Orders Sodium Chloride (Saline Flush) 10 ml FLUSH Q8HR PRN PRN Reason: keep vein open Labs: Laboratory Tests 04/23/19 04/23/19 04/23/19 Range/Units 19:00 19:00 19:00 WBC 9.49 (5.00-10.00) 10^3/uL RBC 4.32 L (4.50-6.00) 10^6/uL Hgb 13.5 (13.0-17.0) g/dL Hct 38.3 L (40.0-52.0) % MCV 88.7 (82.0-92.0) fL MCH 31.3 H (27.0-31.0) pg MCHC 35.2 (32.0-36.0) g/dL RDW 12.3 (11.5-14.5) % Plt Count 294 D (150-400) 10^3/uL MPV 10.1 (7.4-10.4) fL Immature Gran % (Auto) 0.4 (0.0-5.0) % Neut % (Auto) 60.2 (50.0-70.0) % Lymph % (Auto) 23.0 (20.0-40.0) % [place] % (Auto) 14.0 H (2.0-8.0) % Eos % (Auto) 2.0 (1.0-3.0) % Baso % (Auto) 0.4 (0.0-1.0) % Immature Gran # (Auto) 0.04 (0.00-0.50) 10^3/uL Neut # (Auto) 5.71 (2.50-7.00) 10^3/uL Lymph # (Auto) 2.18 (1.00-4.00) 10^3/uL [place] # (Auto) 1.33 H (0.10-0.80) 10^3/uL Eos # (Auto) 0.19 (0.10-0.30) 10^3/uL Baso # (Auto) 0.04 (0.00-0.10) 10^3/uL PT 10.4 (8.9-11.4) SEC INR 1.0 (0.9-1.1) APTT 24.2 (23.1-31.3) SEC Sodium 134 L (136-145) mmol/L Potassium 3.3 (3.3-5.3) mmol/L Chloride 97 L (98-115) mmol/L Carbon Dioxide 24.1 (21.0-32.0) mmol/L Anion Gap 16.2 H (5-15) mmol/L BUN 21 (6-25) mg/dL Creatinine 0.98 (0.51-1.17) mg/dL Est Cr Clr Drug Dosing 68.83 mL/min Estimated GFR (MDRD) > 60 mL/min Glucose 133 H (75 - 99) mg/dL Calcium 9.1 (8.7-10.3) mg/dL Total Bilirubin 0.4 (0.2-1.0) mg/dL AST 27 (15-37) U/L ALT 28 (12-78) U/L Alkaline Phosphatase 42 L (46-116) IU/L Total Protein 7.1 (6.4-8.2) g/dL Albumin 3.50 (3.00-4.80) g/dL Blood Type Gel Antibody Screen 04/23/19 Range/Units 19:00 WBC (5.00-10.00) 10^3/uL RBC (4.50-6.00) 10^6/uL Hgb (13.0-17.0) g/dL Hct (40.0-52.0) % MCV (82.0-92.0) fL MCH (27.0-31.0) pg MCHC (32.0-36.0) g/dL RDW (11.5-14.5) % Plt Count (150-400) 10^3/uL MPV (7.4-10.4) fL Immature Gran % (Auto) (0.0-5.0) % Neut % (Auto) (50.0-70.0) % Lymph % (Auto) (20.0-40.0) % [place] % (Auto) (2.0-8.0) % Eos % (Auto) (1.0-3.0) % Baso % (Auto) (0.0-1.0) % Immature Gran # (Auto) (0.00-0.50) 10^3/uL Neut # (Auto) (2.50-7.00) 10^3/uL Lymph # (Auto) (1.00-4.00) 10^3/uL [place] # (Auto) (0.10-0.80) 10^3/uL Eos # (Auto) (0.10-0.30) 10^3/uL Baso # (Auto) (0.00-0.10) 10^3/uL PT (8.9-11.4) SEC INR (0.9-1.1) APTT (23.1-31.3) SEC Sodium (136-145) mmol/L Potassium (3.3-5.3) mmol/L Chloride (98-115) mmol/L Carbon Dioxide (21.0-32.0) mmol/L Anion Gap (5-15) mmol/L BUN (6-25) mg/dL Creatinine (0.51-1.17) mg/dL Est Cr Clr Drug Dosing mL/min Estimated GFR (MDRD) mL/min Glucose (75 - 99) mg/dL Calcium (8.7-10.3) mg/dL Total Bilirubin (0.2-1.0) mg/dL AST (15-37) U/L ALT (12-78) U/L Alkaline Phosphatase (46-116) IU/L Total Protein (6.4-8.2) g/dL Albumin (3.00-4.80) g/dL Blood Type O NEGATIVE Gel Antibody Screen Negative Meds: Medications Generic Name Dose Route Start Last Admin Trade Name Freq PRN Reason Stop Dose Admin Sodium Chloride 10 ml 04/23/19 18:42 Saline Flush FLUSH Q8HR PRN keep vein open Discontinued Medications Generic Name Dose Route Start Last Admin Trade Name Freq PRN Reason Stop Dose Admin Hydromorphone HCl 0.5 mg 04/23/19 18:42 04/23/19 18:59 Dilaudid IVPUSH 04/23/19 18:43 0.5 mg ONETIME ONE Administration Hydromorphone HCl 0.5 mg 04/23/19 19:18 04/23/19 19:26 Dilaudid IVPUSH 04/23/19 19:19 0.5 mg ONETIME ONE Administration Hydromorphone HCl 0.5 mg 04/23/19 20:22 Dilaudid IVPUSH 04/23/19 20:23 ONETIME ONE Sodium Chloride 1,000 mls @ 999 mls/hr 04/23/19 18:42 04/23/19 19:00 Normal Saline IV 04/23/19 19:42 999 mls/hr .BOLUS ONE Administration Ondansetron HCl 4 mg 04/23/19 18:42 04/23/19 18:57 Zofran IVPUSH 04/23/19 18:43 4 mg ONETIME ONE Administration - Radiology Interpretation Free Text/Narrative:: CT abdomen and pelvis with IV contrast shows large left anterior abdominal wall hematoma measuring 5 x 9 x 13 cm. No evidence of active exsanguination identified - Re-Assessments/Exams Free Text/Narrative Re-Assessment/Exam: 04/23/19 20:50 patient afebrile, vital signs stable, appears nontoxic, pain controlled. Discussed case with Dr. Ramirez, Gen. surgery at [facility]. He will accept patient for transfer. Departure - Departure Time of Disposition: 20:53 Disposition: DC/Tfer to Acute Hospital 02 Condition: Fair Clinical Impression: Postprocedural hematoma of abdominal wall - Discharge Information Forms: ED Department Discharge - My Orders Last 24 Hours: My Active Orders 04/23/19 18:42 Abdomen w Cont [CT] Stat Sodium Chloride 0.9% [Saline Flush] 10 ml FLUSH Q8HR PRN Peripheral IV Insertion Adult [OM.PC] Routine 04/23/19 18:43 Peripheral IV Care [RC] . DIRECTED - Assessment/Plan Last 24 Hours: My Active Orders 04/23/19 18:42 Abdomen w Cont [CT] Stat Sodium Chloride 0.9% [Saline Flush] 10 ml FLUSH Q8HR PRN Peripheral IV Insertion Adult [OM.PC] Routine 04/23/19 18:43 Peripheral IV Care [RC] . DIRECTED Assessment:: Abdominal wall hematoma status post hernia repair Plan: Transfer via ground ambulance to [facility]
[2019-04-23 19:28] LABS: ANION GAP 16.2 mmol/L (5-15); CHLORIDE,CL 97 mmol/L (98-115); SODIUM,NA 134 mmol/L (136-145)
[2019-04-23 21:22] VITALS: BP 132/58
--- NOTE | 2019-04-24 11:03 | CT ---
[id number] CT/CT Abdomen W IV Exam: CT Abdomen W IV Clinical Data: EXPANDING HEMATOMA COMPARISON: NO PREVIOUS SIMILAR EXAM IS AVAILABLE FINDINGS: A large left-sided rectus sheath hematoma is seen. The liver and spleen, kidneys and adrenals, pancreas and aorta show no acute abnormalities. The gallbladder is not distended. The liver and spleen, kidneys and adrenals, pancreas and aorta otherwise are unremarkable. A small lower pole right renal cyst is stable since the last exam. There is uncomplicated diverticular disease of the colon. The appendix is not seen. The pelvis shows no mass or adenopathy. Report was provided at the time of the exam and the patient apparently was transferred to another hospital. IMPRESSION: LARGE LEFT-SIDED RECTUS SHEATH HEMATOMA. Deepak Whitaker MD 04/24/19 0113 Thank you for allowing us to participate in the care of your patient.
[2019-04-26] MEDS ORDERED: Iopamidol 755 Mg/ML 75 ML Bottle IVPUSH ONE (08:06)
[2019-04-26] MEDS ORDERED: Sodium Chloride 0.9% 50 ML IV SCH (11:00)
== END 2019-04-23 21:10 ==
LOC: KA.ED 18:38
DX: K91.870 Postprocedural hematoma of a digestive system organ or structure following a digestive system procedure (principal); I10 Essential (primary) hypertension; F32.9 Major depressive disorder, single episode, unspecified; Z79.899 Other long term (current) drug therapy; Z98.890 Other specified postprocedural states
CPT/HCPCS: 74160; 80053; 85025; 85610; 85730; 86850; 86900; 86901; 96361; 96374; 96375; 96376; 99285-25; J1170; J2405; J7030; J7050; Q9967

== ENCOUNTER 2019-08-06 14:40 | Emergency (ER) | payer MEDICARE, OTHER ==
[2019-08-06] MEDS ORDERED: Aspirin 81 MG Tab.Chew PO ONE (14:45)
[2019-08-06] MEDS ORDERED: Aspirin 81 MG Tab.Chew ONE (14:59)
[2019-08-06 15:10] VITALS: BP 131/58; PULSE 89
[2019-08-06 15:39] LABS: ANION GAP 11.7 mmol/L (5-15); CHLORIDE,CL 103 mmol/L (98-115); SODIUM,NA 140 mmol/L (136-145)
--- NOTE | 2019-08-06 18:42 | EDM.PDOC ---
ED HPI GENERAL MEDICAL PROBLEM - General Chief Complaint: General Stated Complaint: chest pain Time Seen by Provider: 08/06/19 14:50 Source of Information: Reports: Patient, Family - History of Present Illness INITIAL COMMENTS - FREE TEXT/NARRATIVE: 69-year-old male presents to the emergency room with complaints of chest discomfort. He has had complaints of chest discomfort that began on Friday. Initially had some pain in his left jaw and shoulder that lasted about 5 minutes. Since that time he is always had a little bit of achiness and discomfort in his chest. He had this recur last night and again this morning. Each time he had pain in his left shoulder and jaw lasting 5 minutes. He now is no longer experiencing pain or discomfort in his jaw or shoulder. He still feels chest achiness or pressure which has been consistent for most of this week. He has not taken anything for this. He denies shortness of breath. He denies dyspnea on exertion. Denies orthopnea. He did have an episode earlier today where he felt sweaty. He has had a similar episode that was worked up and admitted overnight in January. He has had follow-up with cardiology with a stress test which the patient states was normal. He had a PCI approximately 2 years ago which he reports he had a proximal 90% blockage of his right coronary artery. The did not stent this. They stated that they felt that he was stable that he would not need to have a bypass. He has not had any episodes until most recently in this January and then I began last night. He does have a history of hypertension and high cholesterol which is well managed. He is a nonsmoker. He only drinks alcohol socially 1-2 beers a week. There is no significant family history of coronary artery disease or heart attack. His father did have a stroke and and was at the age of 72 but he relates this that his father was a 2 pack a day smoker. His mother is 93 years old and is alive and healthy. His siblings do not have any history of heart attack. He felt after the last week that he should probably have this checked out and presents to the emergency room today. Again he is currently not experiencing chest pain or shortness of breath. He describes achiness. 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 Onset: Gradual Onset Date: 08/03/19 Duration: Day(s):, Intermittent Location: Reports: Chest Quality: Reports: Ache Severity: Mild Improves with: Reports: None Worsens with: Reports: None Associated Symptoms: Reports: No Other Symptoms Middle Chest Pain Score (Numeric/FACES): 2 - Related Data Allergies Allergy/AdvReac Type Severity Reaction Status Date / Time No Known Drug Allergies Allergy NKDA Verified 08/06/19 15:10 Home Meds: Home Meds Aspirin 81 mg PO BEDTIME 12/06/16 [History] Folic Acid 400 mcg PO DAILY 12/06/16 [History] Metoprolol Tartrate [Lopressor] 25 mg PO BID 12/06/16 [History] Multivitamin with Minerals [Multiple Vitamin] 1 tab PO DAILY 12/06/16 [History] [place]-3/DHA/Epa/Fish Oil [[place]-3 Fish Oil 1,000 MG Sfgl] 1,000 mg PO BID [History] Simvastatin [Zocor] 80 mg PO BEDTIME 12/06/16 [History] Venlafaxine [Effexor] 75 mg PO DAILY 12/06/16 [History] Omeprazole 40 mg PO DAILY 02/05/19 [History] Past Medical History HEENT History: Reports: Allergic Rhinitis, Hard of Hearing, Impaired Vision Other HEENT History: glasses, left ear hearing aide Cardiovascular History: Reports: High Cholesterol, Hypertension Respiratory History: Reports: Asthma, Bronchitis, Recurrent Gastrointestinal History: Reports: Chronic Diarrhea, Colon Polyp, Diverticulosis , Hemorrhoids, Irritable Bowel Syndrome Genitourinary History: Reports: Other (See Below) Other Genitourinary History: enlarged prostate Musculoskeletal History: Reports: Back Pain, Chronic Neurological History: Reports: Other (See Below) Other Neuro History: Trigeminal Neuralgia Psychiatric History: Reports: Depression - Infectious Disease History Infectious Disease History: Reports: C-Difficile, Influenza, Measles, Mumps - Past Surgical History HEENT Surgical History: Reports: Naso-Sinus Surgery, Tonsillectomy Musculoskeletal Surgical History: Reports: Arthroscopic Knee, Shoulder Surgery Social & Family History - Family History Family Medical History: Noncontributory Cardiac: Reports: High Cholesterol, Hypertension - Tobacco Use Smoking Status *Q: Never Smoker Second Hand Smoke Exposure: Yes - Caffeine Use Caffeine Use: Reports: Coffee, Tea Other Caffeine Use: 2 cups/day - Recreational Drug Use Recreational Drug Use: No ED ROS GENERAL - Review of Systems Review Of Systems: See Below Constitutional: Reports: No Symptoms HEENT: Reports: No Symptoms Respiratory: Reports: No Symptoms Cardiovascular: Reports: Blood Pressure Problem. Denies: Claudication, Dyspnea on Exertion, Edema, Lightheadedness, Orthopnea, PND, Syncope Endocrine: Reports: No Symptoms GI/Abdominal: Reports: No Symptoms : Reports: No Symptoms Musculoskeletal: Reports: No Symptoms Skin: Reports: No Symptoms Neurological: Reports: No Symptoms Psychiatric: Reports: No Symptoms Hematologic/Lymphatic: Reports: No Symptoms ED EXAM, GENERAL - Physical Exam Exam: See Below Exam Limited By: No Limitations General Appearance: Alert, WD/WN, No Apparent Distress Eye Exam: Bilateral Eye: EOMI Ears: Hearing Grossly Normal Nose: Normal Inspection Throat/Mouth: Normal Inspection, Normal Lips, Normal Teeth, Normal Gums, Normal Oropharynx, Normal Voice, No Airway Compromise Head: Atraumatic, Normocephalic Neck: Normal Inspection, Supple, Non-Tender, Full Range of Motion. No: Carotid Bruit, Lymphadenopathy (L), Lymphadenopathy (R) Respiratory/Chest: No Respiratory Distress, Lungs Clear, Normal Breath Sounds, No Accessory Muscle Use Cardiovascular: Normal Peripheral Pulses, Regular Rate, Rhythm, No Murmur Peripheral Pulses: 2+: Carotid (L), Carotid (R), Radial (L), Radial (R), Dorsalis Pedis (L), Dorsalis Pedis (R) GI/Abdominal: Normal Bowel Sounds, Soft, Non-Tender, No Abnormal Bruit, No Mass Back Exam: Normal Inspection, Full Range of Motion Extremities: Normal Inspection, Normal Range of Motion, No Pedal Edema Neurological: Alert, Oriented, Normal Cognition, No Motor/Sensory Deficits Psychiatric: Normal Affect, Normal Mood Skin Exam: Warm, Dry, Intact, Normal Color Lymphatic: No Adenopathy EKG INTERPRETATION EKG Date: 08/06/19 Time: 14:55 Rhythm: NSR Rate (Beats/Min): 82 [place]: Normal P-Wave: Present QRS: Normal ST-T: Normal QT: Normal Comparison: NA - No Prior EKG EKG Interpretation Comments: Normal sinus rhythm normal ECG Course - Vital Signs Last Recorded V/S: Last Vital Signs Temp 98.3 F 08/06/19 15:05 Pulse 89 08/06/19 15:05 Resp 17 08/06/19 15:05 BP 131/58 L 08/06/19 15:05 Pulse Ox 98 08/06/19 15:05 - Orders/Labs/Meds Orders: Active Orders 24 hr Category Date Time Status EKG Documentation Completion [RC] ASDIRECTED Care 08/06/19 15:15 Active EKG 12 Lead [EK] Routine Ther 08/06/19 15:14 Ordered Labs: Laboratory Tests 08/06/19 08/06/19 Range/Units 15:00 15:00 WBC 8.32 (5.00-10.00) 10^3/uL RBC 4.80 (4.50-6.00) 10^6/uL Hgb 14.7 (13.0-17.0) g/dL Hct 42.9 (40.0-52.0) % MCV 89.4 (82.0-92.0) fL MCH 30.6 (27.0-31.0) pg MCHC 34.3 (32.0-36.0) g/dL RDW 12.3 (11.5-14.5) % Plt Count 280 (150-400) 10^3/uL MPV 10.3 (7.4-10.4) fL Immature Gran % (Auto) 0.1 (0.0-5.0) % Neut % (Auto) 72.8 H (50.0-70.0) % Lymph % (Auto) 18.5 L (20.0-40.0) % [place] % (Auto) 6.3 (2.0-8.0) % Eos % (Auto) 1.9 (1.0-3.0) % Baso % (Auto) 0.4 (0.0-1.0) % Immature Gran # (Auto) 0.01 (0.00-0.50) 10^3/uL Neut # (Auto) 6.06 (2.50-7.00) 10^3/uL Lymph # (Auto) 1.54 (1.00-4.00) 10^3/uL [place] # (Auto) 0.52 (0.10-0.80) 10^3/uL Eos # (Auto) 0.16 (0.10-0.30) 10^3/uL Baso # (Auto) 0.03 (0.00-0.10) 10^3/uL Sodium 140 (136-145) mmol/L Potassium 3.5 (3.3-5.3) mmol/L Chloride 103 (98-115) mmol/L Carbon Dioxide 28.8 (21.0-32.0) mmol/L Anion [place] 11.7 (5-15) mmol/L BUN 26 H (6-25) mg/dL Creatinine 0.85 (0.51-1.17) mg/dL Est Cr Clr Drug Dosing 79.35 mL/min Estimated GFR (MDRD) > 60 mL/min Glucose 131 H (75 - 99) mg/dL Calcium 9.3 (8.7-10.3) mg/dL Troponin I < 0.04 (0.00-0.070) ng/mL Meds: Medications Discontinued Medications Generic Name Dose Route Start Last Admin Trade Name Freq PRN Reason Stop Dose Admin Aspirin Confirm 08/06/19 14:59 Aspirin Administered 08/06/19 15:00 Dose 324 mg .ROUTE .STK-MED ONE Aspirin 324 mg 08/06/19 14:45 Aspirin PO 08/06/19 14:46 ONETIME ONE Departure - Departure Time of Disposition: 17:25 Disposition: Home, Self-Care 01 Condition: Good Clinical Impression: Angina pectoris without myocardial infarction Instructions: Coronary Artery Disease, Male, Angina Pectoris Referrals: Christianne Brooks MD [Physician] - Jesus Pringle MD [Primary Care Provider] - Forms: ED Department Discharge - My Orders Last 24 Hours: My Active Orders 08/06/19 15:14 EKG 12 Lead [EK] Routine 08/06/19 15:15 EKG Documentation Completion [RC] ASDIRECTED - Assessment/Plan Last 24 Hours: My Active Orders 08/06/19 15:14 EKG 12 Lead [EK] Routine 08/06/19 15:15 EKG Documentation Completion [RC] ASDIRECTED Assessment:: Angina pectoralis without cardial infarction Plan: Patient should be instructed to return to the emergency room if: -Chest discomfort last greater than 5 minutes -Chest discomfort gets worse in any way -History of angina, and discomfort not relieved by usual medications -Shortness of breath, sweats, dizziness, vomiting or nausea with chest pain or chest discomfort -Chest discomfort moves into your arm, neck, back, jaw, or stomach Follow-up with Dr. Godwin Jenny next week for evaluation Keep her scheduled appointment with her railroad wheels and axle inspector in [place] August 16 No vigorous or strenuous activity over the weekend.
== END 2019-08-06 17:25 | disposition home or self-care (01) ==
LOC: KA.ED 14:40
DX: I20.9 Angina pectoris, unspecified (principal); I10 Essential (primary) hypertension; F32.9 Major depressive disorder, single episode, unspecified; E78.00 Pure hypercholesterolemia, unspecified; Z98.890 Other specified postprocedural states; Z79.82 Long term (current) use of aspirin; Z79.899 Other long term (current) drug therapy
CPT/HCPCS: 36415; 80048; 84484; 85025; 93005; 99285; A9270; 99284

== ENCOUNTER 2022-07-15 08:03 | Day surgery (SDC) | payer MEDICARE, OTHER ==
[2022-07-15] MEDS ORDERED: Propofol 200 MG/20 ML SDV IV ONE (08:04)
[2022-07-15] MEDS: Lactated Ringers 1,000 ML IV SCH (08:38)
[2022-07-15] MEDS: Sodium Chloride 0.9% 10 ML Syringe FLUSH PRN (08:39)
[2022-07-15] MEDS ORDERED: Propofol 200 MG/20 ML SDV ONE (09:23)
[2022-07-15] MEDS ORDERED: Midazolam 1 MG/ML 2 ML SDV ONE (09:23)
[2022-07-15 11:10] VITALS: BP 128/96; PULSE 64
== END 2022-07-15 11:30 | disposition home or self-care (01) ==
LOC: KA.SDS 08:03
PROVIDERS: ATTEND Family Medicine
DX: K57.30 Diverticulosis of large intestine without perforation or abscess without bleeding (principal); K58.9 Irritable bowel syndrome, unspecified; I10 Essential (primary) hypertension; G89.29 Other chronic pain; M53.3 Sacrococcygeal disorders, not elsewhere classified; R41.3 Other amnesia; F41.9 Anxiety disorder, unspecified; F32.A Depression, unspecified; E78.5 Hyperlipidemia, unspecified; K21.9 Gastro-esophageal reflux disease without esophagitis; N40.0 Benign prostatic hyperplasia without lower urinary tract symptoms; Z79.899 Other long term (current) drug therapy; Z20.822 Contact with and (suspected) exposure to COVID-19; Z79.82 Long term (current) use of aspirin; Z88.8 Allergy status to other drugs, medicaments and biological substances; Z98.890 Other specified postprocedural states
CPT/HCPCS: 00812; J2250; J2704; J3490; J7120